=== PATIENT | male | born 1930 | race Caucasian/White ===

== ENCOUNTER → 2017-07-07 | Outpatient (CLI) | payer MEDICARE, BC ==
--- NOTE | 2017-07-07 14:58 | FL ---
EXAMINATION TYPE: FL UGI air DATE OF EXAM: 07/07/2017 COMPARISON: NONE HISTORY: Abdominal pain and satiety. TECHNIQUE: A double contrast UGI study is performed utilizing 2.2 minutes of fluoroscopy time with 8 6 images saved. FINDINGS: The esophagus shows delayed and blunted secondary wave with tertiary contractions in the gravity inde pendent independent portion of the examination with intraesophageal reflux. A moderate hiatal hernia is present. Mild gastroesophageal reflux is seen to the level of the distal third of the esophagus. A dditionally laryngeal penetration is incidentally noted. Two duodenal diverticula are seen of the third portion of the duodenum. Thickened gastric rugal is co mmonly related to gastritis and are seen diffusely. No evidence of stricture is noted. The stomach s hows normal distensibility and peristalsis. No evidence of any mass or ulcer disease. The duodenal b ulb, sweep, and proximal small bowel loops are unremarkable other than the previously described diver ticula. IMPRESSION: 1. Moderate hiatal hernia and mild gastroesophageal reflux to the level of distal third of the esopha aimee. 2. Blunted secondary wave, intraesophageal reflux, and tertiary contractions most commonly relating t o presbyesophagus. 3. Diffusely thickened gastric rugae likely related to gastritis. 4. Benign duodenal diverticula.
== END | disposition home or self-care (01) ==
LOC: RADFLWHC 08:56
PROVIDERS: ATTEND Family Medicine
DX: K57.10 Diverticulosis of small intestine without perforation or abscess without bleeding (principal); K44.9 Diaphragmatic hernia without obstruction or gangrene; K21.9 Gastro-esophageal reflux disease without esophagitis
CPT/HCPCS: 74246